=== PATIENT | female | born 1995 | race Caucasian/White ===

== ENCOUNTER 2019-01-26 20:32 | Emergency (ER) | payer MEDICAID ==
[2019-01-26] MEDS ORDERED: Ondansetron 4 MG/2 ML SDV IVPUSH ONE (21:07)
[2019-01-26] MEDS ORDERED: fentaNYL 100 MCG/2 ML SDV IVPUSH ONE (21:07)
[2019-01-26] MEDS ORDERED: Sodium Chloride 0.9% 10 ML Syringe FLUSH PRN (21:07)
--- NOTE | 2019-01-26 21:13 | EDM.PDOC ---
ED HPI GENERAL MEDICAL PROBLEM - General Chief Complaint: Upper Extremity Injury/Pain Stated Complaint: SHOULDER INJRUY Time Seen by Provider: 01/26/19 21:08 Source of Information: Reports: Patient History Limitations: Reports: No Limitations - History of Present Illness INITIAL COMMENTS - FREE TEXT/NARRATIVE: Patient is a 23-year-old female who presents to the ED with a dislocated right shoulder. States she had a rotator cuff repair approximately 1.5 years ago. Since then her right shoulder dislocates often. She was evaluated at the [facility] today with x-rays obtained indicating dislocated right shoulder. She had a test that came back negative. She has decreased range of motion secondary to pain. Pain is isolated to the right shoulder. She has not fallen on the affected extremity. States this afternoon while resting she rolled over and felt a clunk and immediate pain. Patient had been resting since having a seizure yesterday. She has history of epilepsy controlled with medications. She normally has no seizures unless she forgets to take her medications. She forgot the day prior. Patient denies any numbness or tingling to the affected extremity. She offers no additional complaints. Last meal was at 2:00 today. The shoulder has been dislocated since 1600 hrs. Treatments EDGE BLACKER: Reports: IV/IO, Other (see below) Other Treatments EDGE BLACKER: Morphind 2 mg Right Shoulder Pain Score (Numeric/FACES): 9 - Related Data Allergies Allergy/AdvReac Type Severity Reaction Status Date / Time diphenhydramine Allergy Seizure Verified 01/26/19 20:43 [From Benadryl] Home Meds: Home Meds ALPRAZolam [Xanax] 1 - 2 mg PO Q4H PRN 01/26/19 [History] Acetaminophen/oxyCODONE [Percocet 325-5 MG] 1 each PO Q6HR PRN #8 tab 01/26/19 [ Rx] Cholecalciferol (Vitamin D3) [Vitamin D] 5,000 unit PO DAILY 01/26/19 [History] Escitalopram [Lexapro] 10 mg PO DAILY 01/26/19 [History] Ferrous Sulfate [Iron] 325 mg PO DAILY 01/26/19 [History] Ibuprofen [Ibu] 800 mg PO Q8H PRN 01/26/19 [History] Phenytoin Sodium Extended [Dilantin] 100 mg PO DAILY 01/26/19 [History] Pnv No.95/Ferrous Fum/Folic AC [ Caplet] 1 tab PO DAILY 01/26/19 [ History] Topiramate 200 mg PO BEDTIME 01/26/19 [History] lamoTRIgine [Lamictal] 200 mg PO DAILY 01/26/19 [History] Past Medical History Musculoskeletal History: Reports: Fracture Neurological History: Reports: Seizure Other Neuro History: VNS stimulator Psychiatric History: Reports: Anxiety Hematologic History: Reports: Anemia - Past Surgical History HEENT Surgical History: Reports: Oral Surgery Female Surgical History: Reports: Other (See Below) Other Female Surgeries/Procedures: "bladder stretching" Musculoskeletal Surgical History: Reports: Shoulder Surgery Social & Family History - Tobacco Use Smoking Status *Q: Current Every Day Smoker Years of Tobacco use: 12 Packs/Tins Daily: 0.5 - Recreational Drug Use Recreational Drug Use: Yes Drug Use in Last 12 Months: No Recreational Drug Use Frequency: Not Used In Over 6 Months Review of Systems - Review of Systems Review Of Systems: ROS reveals no pertinent complaints other than HPI. ED EXAM, GENERAL - Physical Exam Exam: See Below Exam Limited By: No Limitations General Appearance: Alert, WD/WN, No Apparent Distress Ears: Hearing Grossly Normal Nose: Normal Inspection Throat/Mouth: Normal Voice, No Airway Compromise, Other (Mild trauma to the right side of her tongue secondary to recent seizure.) Head: Atraumatic, Normocephalic Neck: Normal Inspection, Supple Respiratory/Chest: No Respiratory Distress, No Accessory Muscle Use, Chest Non- Tender Cardiovascular: Normal Peripheral Pulses, Regular Rate, Rhythm, No JVD Back Exam: Normal Inspection, Full Range of Motion Extremities: Other (No obvious asymmetry to the right shoulder in comparison the left. Old surgical scars present to the right shoulder. Pain with palpation of the anterior/lateral/posterior/superior aspect of the right shoulder. No sensory motor deficits distally. Passive range of motion and also active range of motion of the shoulder is limited.) Neurological: Alert, Oriented, CN II-XII Intact, Normal Cognition, No Motor/ Sensory Deficits Psychiatric: Normal Affect, Normal Mood Skin Exam: Warm, Dry, Intact, Normal Color ED TRAUMA EXTREMITY PROCEDURES - Joint Reduction Site: Shoulder (R) Sedation: Conscious Sedation Pre-Procedure NV Status: Normal Post-Procedure NV Status: Normal Technique: Traction/Counter Traction Number of Attempts: 1 Post-Reduction Imaging: Completely Reduced Joint Reduction Complications: Yes (Patient resisting during reduction.) Joint Reduction Complication Description: X-rays of the right shoulder appeared to have brought the shoulder into proper anatomical position. With positioning changes clunk was noted. Patient continues to have pain to the right shoulder with palpation. I have had Dr. Welsh review the post reduction images with shoulder back in proper anatomical position. I will have [facility] review images to ensure. Dr. Welsh suggested tylenol 1 gram, ativan 0.5mg IVP, and toradol 30mg IVP. Patient appears anxious and is seeing things while coming out of sedation with ketamine. Course - Vital Signs Last Recorded V/S: Last Vital Signs Temp 97.4 F 01/26/19 20:44 Pulse 87 01/26/19 20:44 Resp 16 01/26/19 20:44 BP 113/81 01/26/19 20:44 Pulse Ox 100 01/26/19 20:44 - Orders/Labs/Meds Meds: Medications Discontinued Medications Generic Name Dose Route Start Last Admin Trade Name Claudy PRN Reason Stop Dose Admin Acetaminophen 1,000 mg 01/26/19 23:01 Ofirmev IV 01/26/19 23:02 ONETIME ONE Fentanyl 50 mcg 01/26/19 21:07 01/26/19 21:23 Sublimaze IVPUSH 01/26/19 21:08 50 mcg ONETIME ONE Administration Acetaminophen 100 mls @ 400 mls/hr 01/26/19 22:59 Ofirmev IV 01/26/19 23:13 NOW ONE Lactated Ringer's 1,000 mls @ 999 mls/hr 01/26/19 22:30 01/26/19 22:35 Ringers, Lactated IV 01/26/19 23:30 999 mls/hr .BOLUS ONE Administration Acetaminophen 100 mls @ 400 mls/hr 01/26/19 23:15 01/27/19 01:07 Ofirmev IV 01/26/19 23:29 Not Given NOW ONE Ketamine HCl Confirm 01/26/19 22:28 Ketalar Administered 01/26/19 22:29 Dose 500 mg .ROUTE .STK-MED ONE Ketorolac Tromethamine 30 mg 01/26/19 22:57 01/26/19 23:13 Toradol IVPUSH 01/26/19 22:58 30 mg ONETIME ONE Administration Lorazepam 0.5 mg 01/26/19 22:57 01/26/19 23:12 Ativan IVPUSH 01/26/19 22:58 0.5 mg ONETIME ONE Administration Midazolam HCl Confirm 01/26/19 22:28 Versed 1 Mg/Ml Administered 01/26/19 22:29 Dose 2 mg .ROUTE .STK-MED ONE Ondansetron HCl 4 mg 01/26/19 21:07 01/26/19 21:21 Zofran IVPUSH 01/26/19 21:08 4 mg ONETIME ONE Administration Sodium Chloride 10 ml 01/26/19 21:07 01/26/19 21:21 Saline Flush FLUSH 10 ml ASDIRECTED PRN Administration Keep Vein Open - Re-Assessments/Exams Free Text/Narrative Re-Assessment/Exam: IV established with fentanyl 50 g IVP with Zofran 4 mg IVP. X-ray of the right shoulder will be obtained. Per nursing staff after patient was administered fentanyl patient state she had a history of fentanyl addiction and does not want this medication anymore. States she did not want to mention this in front of her boyfriend since he does not know. X-ray of the right shoulder reviewed with Dr. Welsh with confirmation the right shoulder is dislocated. I have asked for nurse anesthetists safety instruction police officer to perform the conscious sedation. Patient does not want propofol and is quite irritated in receiving fentanyl. Consent form signed by patient with risks, benefits, and alternative treatments provided to the patient. Patient is adamant about not receiving propofol due to adverse side effects. Requests ketamine. X-rays of the right shoulder appeared to have brought the shoulder into proper anatomical position. With positioning changes clunk was noted. Patient continues to have pain to the right shoulder with palpation. I have had Dr. Welsh review the post reduction images with shoulder back in proper anatomical position. I will have [facility] review images to ensure. Dr. Welsh suggested tylenol 1 gram, ativan 0.5mg IVP, and toradol 30mg IVP. Patient appears anxious and is seeing things while coming out of sedation with ketamine. 01/26/19 23:29 x-ray of right shoulder post reduction impression: Anatomic alignment. Reassessment, patient's pain is well-controlled if not moving. She has no numbness and tingling to her arm. She has full flexion-extension of her hand at the wrist. Neurovascular she is intact. Patient states she sees her orthopedic surgeon when she returns home February 13. They're planning doing a open shoulder repair since she's had 3 arthroscopic surgeries to the right shoulder with inadequate results. Patient is alert and oriented 3. I will give her additional half-hour prior to ambulating to see if she can be discharged home. I discussed return precautions as well as instructions with patient and boyfriend. She voiced her understanding. Return precautions were discussed with the patient. No further questions or concerns and agreed with plan. Discharge instructions as documented. Departure - Departure Time of Disposition: 23:36 Disposition: Home, Self-Care 01 Condition: Good Clinical Impression: Dislocation of right shoulder joint Qualifiers: Encounter type: initial encounter Qualified Code(s): S43.004A - Unspecified dislocation of right shoulder joint, initial encounter - Discharge Information Prescriptions: Acetaminophen/oxyCODONE [Percocet 325-5 MG] 1 each PO Q6HR PRN #8 tab PRN Reason: Pain (Severe 7-10) Instructions: Shoulder Separation, How to Use a Shoulder Immobilizer, Shoulder Dislocation, [id number] Referrals: Uri Farnsworth MD [Physician] - Forms: ED Department Discharge Additional Instructions: Keep the shoulder sling in place for the next 7 days. Only take off to shower and perform cogwheel exercises as discussed. Refrain from raising your arm above your shoulders or away from your body. Utilize Percocet 1 tab by mouth every 6 hours for severe pain. For [id number] pain use ibuprofen and Tylenol in alternating fashion. Apply ice to the right shoulder 4 times a day, 20 minutes in duration, do not apply ice directly on the skin. Return to ED for any new or worsening symptoms. Refrain from driving this evening and/or while taking the Percocet.
--- NOTE | 2019-01-26 22:22 | PCM.PREANE ---
Preanesthetic Assessment - Anesthesia/Transfusion/Family Hx Anesthesia History: Prior Anesthesia Reaction (gets sick from propofol) Family History of Anesthesia Reaction: No Transfusion History: No Prior Transfusion(s) - Review of Systems General: Fatigue Pulmonary: No Symptoms Cardiovascular: No Symptoms Gastrointestinal: No Symptoms Neurological: Seizure (epilesy) - Physical Assessment NPO Status Date: 01/26/19 NPO Status Time: 14:00 Vital Signs: Last Vital Signs Temp 36.3 C 01/26/19 20:44 Pulse 87 01/26/19 20:44 Resp 16 01/26/19 20:44 BP 113/81 01/26/19 20:44 Pulse Ox 100 01/26/19 20:44 Height: 1.63 m Weight: 70.307 kg ASA Class: 2E Mental Status: Alert & Oriented x3 Airway Class: Mallampati = 1 Dentition: Reports: Normal Dentition Thyro-Mental Finger Breadths: 3 Mouth Opening Finger Breadths: 3 ROM/Head Extension: Full Lungs: Clear to Auscultation, Normal Respiratory Effort Cardiovascular: Regular Rate, Regular Rhythm - Allergies Allergies/Adverse Reactions: Allergies Allergy/AdvReac Type Severity Reaction Status Date / Time diphenhydramine Allergy Seizure Verified 01/26/19 20:43 [From Benadryl] - Blood Blood Available: No Product(s) Available: None - Anesthesia Plan Pre-Op Medication Ordered: None - Acknowledgements Anesthesia Type Planned: MAC Pt an Appropriate Candidate for the Planned Anesthesia: Yes Alternatives and Risks of Anesthesia Discussed w Pt/Guardian: Yes Pt/Guardian Understands and Agrees with Anesthesia Plan: Yes PreAnesthesia Questionnaire Musculoskeletal History: Reports: Fracture Neurological History: Reports: Seizure Other Neuro History: VNS stimulator Psychiatric History: Reports: Anxiety Hematologic History: Reports: Anemia - Past Surgical History HEENT Surgical History: Reports: Oral Surgery Female Surgical History: Reports: Other (See Below) Other Female Surgeries/Procedures: "bladder stretching" Musculoskeletal Surgical History: Reports: Shoulder Surgery - SUBSTANCE USE Smoking Status *Q: Current Every Day Smoker Tobacco Use Within Last Twelve Months: Cigarettes Second Hand Smoke Exposure: Yes Days Per Week of Alcohol Use: 0 Number of Drinks Per Day: 0 Total Drinks Per Week: 0 Recreational Drug Use History: Yes - HOME MEDS Home Medications: Home Meds ALPRAZolam [Xanax] 1 - 2 mg PO Q4H PRN 01/26/19 [History] Cholecalciferol (Vitamin D3) [Vitamin D] 5,000 unit PO DAILY 01/26/19 [History] Escitalopram [Lexapro] 10 mg PO DAILY 01/26/19 [History] Ferrous Sulfate [Iron] 325 mg PO DAILY 01/26/19 [History] Ibuprofen [Ibu] 800 mg PO Q8H PRN 01/26/19 [History] Phenytoin Sodium Extended [Dilantin] 100 mg PO DAILY 01/26/19 [History] Pnv No.95/Ferrous Fum/Folic AC [ Caplet] 1 tab PO DAILY 01/26/19 [ History] Topiramate 200 mg PO BEDTIME 01/26/19 [History] lamoTRIgine [Lamictal] 200 mg PO DAILY 01/26/19 [History] - CURRENT (IN HOUSE) MEDS Current Meds: Current Medications Sodium Chloride (Saline Flush) 10 ml FLUSH ASDIRECTED PRN PRN Reason: Keep Vein Open Last Admin: 01/26/19 21:21 Dose: 10 ml Discontinued Medications Fentanyl (Sublimaze) 50 mcg IVPUSH ONETIME ONE Stop: 01/26/19 21:08 Last Admin: 01/26/19 21:23 Dose: 50 mcg Ondansetron HCl (Zofran) 4 mg IVPUSH ONETIME ONE Stop: 01/26/19 21:08 Last Admin: 01/26/19 21:21 Dose: 4 mg
[2019-01-26] MEDS ORDERED: Ketamine 500 mg/10 ML MDV ONE (22:28)
[2019-01-26] MEDS ORDERED: Midazolam 1 MG/ML 2 ML SDV ONE (22:28)
[2019-01-26] MEDS ORDERED: Lactated Ringers 1,000 ML IV ONE (22:30)
[2019-01-26] MEDS ORDERED: LORazepam 2 MG/ML SDV IVPUSH ONE (22:57)
[2019-01-26] MEDS ORDERED: Ketorolac 30 MG/ML SDV IVPUSH ONE (22:57)
[2019-01-26] MEDS ORDERED: Acetaminophen 1,000 MG/100 ML Infusion Bottle IV ONE (23:01)
[2019-01-26] MEDS ORDERED: ACETAMINOPHEN IV ONE (23:15)
--- NOTE | 2019-01-27 08:15 | CR ---
Right shoulder: Three views of the right shoulder were obtained. Comparison: Prior shoulder study performed earlier the same day (9:35 PM) Previous dislocation has been reduced. Cystic change remains within the glenoid. No acute fracture or other bony abnormality is seen. Impression: 1. Previous dislocation has been reduced. 2. Other stable findings. Diagnostic code #2 I agree with preliminary report from [facility], finalized on 01/27/19, 12:17 AM Central Time
--- NOTE | 2019-01-27 08:16 | CR ---
Right shoulder: Three views the right shoulder were obtained. Anterior dislocation is seen. Cystic change noted within the glenoid most likely representing previous surgery. Electrostimulating device is seen. Lungs are clear. No acute fracture is seen. Impression: 1. Anterior dislocation. 2. Cystic change within the glenoid most likely due to previous surgery. Diagnostic code #3
== END 2019-01-27 01:00 | disposition home or self-care (01) ==
LOC: JD.ED 20:32
DX: S43.014A Anterior dislocation of right humerus, initial encounter (principal); F41.9 Anxiety disorder, unspecified; F17.210 Nicotine dependence, cigarettes, uncomplicated; Z88.8 Allergy status to other drugs, medicaments and biological substances; Z79.899 Other long term (current) drug therapy; Z98.890 Other specified postprocedural states; X50.9XXA Other and unspecified overexertion or strenuous movements or postures, initial encounter
CPT/HCPCS: 23650; 73030; 96361; 96374; 96375; 99152; 99153; 99284; J1885; J2060; J2250; J2405; J3010; J7120; 01620; 23655; 99283